=== PATIENT | female | born 1975 | race Caucasian/White ===

== ENCOUNTER 2019-06-07 09:52 | Outpatient (CLI) | payer OTHER ==
--- NOTE | 2019-06-07 11:14 | MMO ---
Bilateral MAMMO Bilat Screen [facility]. CLINICAL HISTORY: Patient is 44 years old and is seen for screening. The patient has no family history of breast cancer. The patient has no personal history of cancer. VIEWS: The views performed were: bilateral craniocaudal with tomosynthesis and bilateral mediolateral oblique with tomosynthesis. FILMS COMPARED: The present examination has been compared to a prior imaging study performed at [facility] on 05/15/2010. This study has been interpreted with the assistance of computer-aided detection. MAMMOGRAM FINDINGS: The breasts are heterogeneously dense, which could obscure a lesion on mammography. There are no suspicious masses, suspicious calcifications, or new areas of architectural distortion. IMPRESSION: THERE IS NO MAMMOGRAPHIC EVIDENCE OF MALIGNANCY. A ROUTINE FOLLOW-UP MAMMOGRAM IN 1 YEAR IS RECOMMENDED. THE RESULTS OF THIS EXAM WERE SENT TO THE PATIENT. ACR BI-RADS Category 1 - Negative MAMMOGRAPHY NOTE: 1. A negative mammogram report should not delay a biopsy if a dominant of clinically suspicious mass is present. 2. Approximately 10% to 15% of breast cancers are not detected by mammography. 3. Adenosis and dense breasts may obscure an underlying neoplasm. Reported by: TRANG BROWNING MD Electonically Signed: [id number]
== END 2019-06-07 09:53 | disposition home or self-care (01) ==
LOC: BICMAMMO 09:52
PROVIDERS: ATTEND Nurse Practitioner Family
DX: Z12.31 Encounter for screening mammogram for malignant neoplasm of breast (principal)
CPT/HCPCS: 77063; 77067

== ENCOUNTER 2020-10-04 13:41 | Outpatient (CLI) | payer OTHER ==
--- NOTE | 2020-10-04 14:15 | MMO ---
Bilateral MAMMO Bilat Screen [facility]. CLINICAL HISTORY: Patient is 45 years old and is seen for screening. The patient has no family history of breast cancer. The patient has no personal history of cancer. VIEWS: The views performed were: bilateral craniocaudal with tomosynthesis and bilateral mediolateral oblique with tomosynthesis. FILMS COMPARED: The present examination has been compared to prior imaging studies performed at [facility] on 05/15/2010 and 06/07/2019. This study has been interpreted with the assistance of computer-aided detection. MAMMOGRAM FINDINGS: The breasts are heterogeneously dense, which could obscure a lesion on mammography. Increase in number of tiny calcs is seen in the right inner (lower) breast particularly on CC view. In the left breast, there are no suspicious masses, calcifications or areas of architectural distortion. IMPRESSION: FINDING IN THE RIGHT BREAST REQUIRES ADDITIONAL EVALUATION. MAGNIFICATION VIEWS ARE RECOMMENDED. THE RESULTS OF THIS EXAM WERE SENT TO THE PATIENT. ACR BI-RADS Category 0 - Incomplete: Need additional imaging evaluation. [facility] will notify the patient of the need for additional imaging services. MAMMOGRAPHY NOTE: 1. A negative mammogram report should not delay a biopsy if a dominant of clinically suspicious mass is present. 2. Approximately 10% to 15% of breast cancers are not detected by mammography. 3. Adenosis and dense breasts may obscure an underlying neoplasm. Reported by: TRANG BROWNING MD Electonically Signed: [id number]
== END 2020-10-04 13:42 | disposition home or self-care (01) ==
LOC: BICMAMMO 13:41
PROVIDERS: ATTEND Obstetrics & Gynecology
DX: Z12.31 Encounter for screening mammogram for malignant neoplasm of breast (principal)
CPT/HCPCS: 77063; 77067

== ENCOUNTER 2020-10-11 08:55 | Outpatient (CLI) | payer OTHER ==
--- NOTE | 2020-10-11 09:31 | MMO ---
Right Breast MAMMO Unilat Diag [facility]. CLINICAL HISTORY: Patient is 45 years old and is seen for diagnostic exam. The patient has no family history of breast cancer. The patient has no personal history of cancer. VIEWS: The views performed were: right craniocaudal with tomosynthesis; right mediolateral oblique with tomosynthesis; and right mediolateral with tomosynthesis. FILMS COMPARED: The present examination has been compared to prior imaging studies performed at [facility] on 05/15/2010, 06/07/2019 and 10/04/2020. This study has been interpreted with the assistance of computer-aided detection. MAMMOGRAM FINDINGS: The calcs in the right breast (3:00) have an indeterminate appearance and should be biopsied. IMPRESSION: FINDING IN THE RIGHT BREAST IS SUSPICIOUS. A STEREOTACTIC BREAST BIOPSY IS RECOMMENDED. THE RESULTS OF THIS EXAM WERE SENT TO THE PATIENT. ACR BI-RADS Category 4 - Suspicious abnormality - biopsy should be considered D/W pt in person at 9:30 am MAMMOGRAPHY NOTE: 1. A negative mammogram report should not delay a biopsy if a dominant of clinically suspicious mass is present. 2. Approximately 10% to 15% of breast cancers are not detected by mammography. 3. Adenosis and dense breasts may obscure an underlying neoplasm. Reported by: TRANG BROWNING MD Electonically Signed: [id number]
--- NOTE | 2020-10-11 14:29 | MMO ---
Stereotactic guided biopsy right breast microcalcifications Surgical specimen mammography Right diagnostic mammogram post biopsy HISTORY: Abnormal mammogram. Microcalcifications. FINDINGS: After explaining the procedure and answering all questions, the microcalcification cluster at the inferior medial aspect of the right breast was again visualized. Sterile technique, buffered local anesthesia, stereotactic guidance, and a lateral approach were used to carefully advance a 10-gauge vacuum-assisted biopsy needle into the microcalcification cluster. Position was confirmed with stereotactic imaging. A total of 6 10-gauge specimens were obtained and eventually submitted to pathology for evaluation. Surgical specimen mammography confirmed microcalcifications in the sample tissue. Localization clip w as then placed in the biopsy bed and confirmed with stereotactic imaging. Needle was removed and hemostasis obtained using direct pressure. Patient tolerated the procedure wel l and was dismissed in good condition. IMPRESSION : Technically successful stereotactic guided biopsy right breast microcalcifications. Pathology is pend ing.
== END 2020-10-11 08:56 | disposition home or self-care (01) ==
LOC: BICMAMMO 08:55
PROVIDERS: ATTEND Obstetrics & Gynecology
DX: R92.1 Mammographic calcification found on diagnostic imaging of breast (principal)
CPT/HCPCS: 19081; 76098; 88305; 88341; 88342; G0279

== ENCOUNTER 2022-01-03 09:14 | Outpatient (CLI) | payer BC | END 2022-01-03 09:15 | disposition home or self-care (01) | LOC: BICMAMMO 09:14 | PROVIDERS: ATTEND Family Medicine | DX: Z12.31 Encounter for screening mammogram for malignant neoplasm of breast (principal) | CPT/HCPCS: 77063; 77067 ==

== ENCOUNTER 2023-10-02 12:26 | Outpatient (CLI) | payer BC | END 2023-10-02 12:27 | disposition home or self-care (01) | LOC: BICMAMMO 12:26 | PROVIDERS: ATTEND Internal Medicine | DX: Z12.31 Encounter for screening mammogram for malignant neoplasm of breast (principal) | CPT/HCPCS: 77063; 77067 ==